=== PATIENT | male | born 1935 | race Caucasian/White ===

== ENCOUNTER 2018-07-31 11:19 | Emergency (ER) | payer MEDICARE, BC ==
[2018-07-31] MEDS ORDERED: HYDROXYZ HCL25 MG PO (11:47)
[2018-07-31] MEDS ORDERED: AMLODIPINE5 MG PO (11:47)
[2018-07-31 12:21] LABS: HEMATOCRIT 38.3 % (39.0-50.0); HEMOGLOBIN 13.2 g/dl (14.0-18.0); IMMATURE GRANULOCYTES 0.7 % (0.0-5.0); MEAN CELL VOLUME 85.3 fL CALC (80.0-100.0); MEAN CORPUSCULAR HGB 29.4 pG CALC (26.0-32.0); MEAN CORPUSCULAR HGB CONC 34.5 g/L CALC (32.0-36.0); NEUT# 4.58 thou/uL (1.82-7.42); RED BLOOD COUNT 4.49 mill/uL (4.70-6.10); RED CELL DISTRI WIDTH 16.9 % (11.5-15.5)
[2018-07-31 12:45] LABS: BILIRUBIN, TOTAL 1.5 mg/dL (0.0-1.4)
[2018-07-31 12:55] LABS: ALBUMIN 2.4 g/dL (3.2-5.0); CREATININE 2.3 mg/dL (0.7-1.3); TOTAL PROTEIN 4.3 g/dL (6.3-8.2)
[2018-07-31 12:56] LABS: POTASSIUM 5.8 mmol/l (3.5-5.1)
[2018-07-31 13:16] LABS: TSH, 3RD GENERATION 9.84 uIU/mL (0.47 - 4.68)
[2018-07-31 15:00] VITALS: BP 113/71
[2018-07-31 16:14] LABS: CREATININE 2.2 mg/dL (0.7-1.3)
== END 2018-07-31 17:00 | disposition short-term general hospital (02) ==
LOC: ED 11:19
PROVIDERS: Family Medicine
DX: A41.9 Sepsis, unspecified organism (principal); R21 Rash and other nonspecific skin eruption; N28.9 Disorder of kidney and ureter, unspecified; E87.5 Hyperkalemia; K92.1 Melena; I10 Essential (primary) hypertension; Z85.72 Personal history of non-Hodgkin lymphomas; Z85.038 Personal history of other malignant neoplasm of large intestine